=== PATIENT | female | born 1990 | race Caucasian/White ===

== ENCOUNTER 2018-10-20 09:40 | Emergency (ER) | payer OTHER ==
[2018-10-20 09:50] VITALS: BP 139/83; PULSE 100; TEMP 99; BMI 46.0
--- NOTE | 2018-10-20 10:14 | PDOC ---
History of Present Illness - General Chief Complaint: Cold Symptoms Stated Complaint: COLD SYMPTOMS Time Seen by Provider: 10/20/18 09:54 History Source: Patient - History of Present Illness Severity: reports: mild Past History - Past Medical History Allergies/Adverse Reactions: Allergies Allergy/AdvReac Type Severity Reaction Status Date / Time amoxicillin Allergy Verified 10/20/18 09:48 prednisone Allergy Verified 10/20/18 09:48 Home Medications: Ambulatory Orders NK [No Known Home Medication] 10/20/18 COPD: No CHF: No DVT: No - Immunization History Immunization Up to Date: Yes - Suicide/Smoking/Psychosocial Hx Smoking History: Never smoked Information on smoking cessation initiated: No Hx Alcohol Use: No Drug/Substance Use Hx: No Review of Systems - Review of Systems Constitutional: Yes: Fever Respiratory: Yes: Cough. No: Shortness of Breath, Hemoptysis Cardiac (ROS): No: Chest Pain, Lightheadedness, Palpitations ABD/GI: No: Diarrhea, Nausea, Vomiting, Abdominal cramping : No: Dysuria, Flank Pain, Hematuria *Physical Exam - Vital Signs Last Vital Signs Temp Pulse Resp BP Pulse Ox 99.0 F 100 H 17 139/83 99 10/20/18 09:48 10/20/18 09:48 10/20/18 09:48 10/20/18 09:48 10/20/18 09:48 - Physical Exam General Appearance: Yes: Appropriately Dressed. No: Apparent Distress HEENT: positive: Normal ENT Inspection, Normal Voice. negative: Scleral Icterus (R), Scleral Icterus (L) Neck: positive: Supple. negative: Lymphadenopathy (R), Lymphadenopathy (L) Respiratory/Chest: positive: Lungs Clear, Normal Breath Sounds. negative: Respiratory Distress Cardiovascular: positive: Regular Rate, S1, S2 Gastrointestinal/Abdominal: positive: Soft. negative: Tender Musculoskeletal: negative: CVA Tenderness Integumentary: positive: Dry, Warm Neurologic: positive: Fully Oriented Medical Decision Making - Medical Decision Making 10/20/18 10:09 Neuro female s/p w/ twins 1 week ago at [facility], here with low-grade fever with dry cough and congestion 3 days. Denies any hemoptysis, shortness of breath, chest pain, palpitations, diarrhea, body aches or rash. No headache, dizziness, blurry vision abd pain, n/v. Continues to have some vag bleed, not worse. No dysuria See exam M/l viral URI No e/o OB complication at this time, i.e pre-eclampsia, etc Well graeme and stable w/ unremarkable exam -dc w/ supportive tx -OB f/u this week *DC/Admit/Observation/Transfer Diagnosis at time of Disposition: URI (upper respiratory infection) Qualifiers: URI type: unspecified viral URI Qualified Code(s): J06.9 - Acute upper respiratory infection, unspecified - Discharge Dispostion Disposition: HOME Condition at time of disposition: Good - Referrals - Patient Instructions Printed Discharge Instructions: DI for Viral Upper Respiratory Infection -- Adult Additional Instructions: Based on your exam, you may have a viral upper respiratory infection. There is no evidence of any OB complication at this time, but if your symptoms worsen, please return to the ED for reevaluation, otherwise follow-up with your OB - Post Discharge Activity
== END 2018-10-20 10:50 | disposition home or self-care (01) ==
LOC: JERFT 09:40
DX: O90.89 Other complications of the puerperium, not elsewhere classified (principal); J06.9 Acute upper respiratory infection, unspecified; B97.89 Other viral agents as the cause of diseases classified elsewhere
CPT/HCPCS: 99281-25